=== PATIENT | female | born 1990 | race Caucasian/White ===

== ENCOUNTER 2022-11-05 15:04 | Outpatient (CLI) | payer MEDICARE, SELFPAY ==
[2022-11-05 19:33] LABS: Chlamydia DNA Amplified* NOT DETECTED (No Detected); GC DNA Amplified* NOT DETECTED (No Detected)
[2022-11-08 09:11] LABS: Bacterial Vaginosis by TMA Negative; Candida glabrata by TMA Negative; Candida species by TMA Negative; Trichomonas vaginalis by TMA Negative
== END 2022-11-05 15:05 | disposition home or self-care (01) ==
PROVIDERS: Visit Provider Registered Nurse
DX: N89.8 Other specified noninflammatory disorders of vagina (principal)
CPT/HCPCS: 81513; 87102; 87481; 87491; 87591; 87661

== ENCOUNTER 2022-11-15 11:02 | Outpatient (CLI) | payer MEDICARE, SELFPAY ==
--- NOTE | 2022-11-15 11:00 | CRLHL7_ITS ---
For Patients: As a result of the Century Cures Act, medical imaging exams and procedure reports are released immediately into your electronic medical record. You may view this report before your referring provider. If you have questions, please contact your health care provider. CLINICAL HISTORY: Pelvic pain TECHNIQUE: 2D manrique scale ultrasound. In addition color Doppler and spectral Doppler analysis was performed of the pelvis using a transabdominal and transvaginal approach. FINDINGS: The myometrium has a normal uniform echotexture. The uterus measures 7.8 x 3.9 x 4.6 cm. The endometrial lining appears normal and measures 3 mm in thickness. The right ovary measures 3.3 x 1.3 x 2.1 cm in size and the left ovary measures 3.1 x 1.4 x 2.0 cm. The ovaries demonstrate normal arterial and venous blood flow on color Doppler and spectral Doppler analysis. Mild pelvic free fluid. IMPRESSION: Mild pelvic free fluid, considered the physiologic. Normal ovaries. No torsion. No large ovarian cyst. Dictated by Jg Chavarria MD @ 11/15/2022 12:08:24 PM (Electronically Signed)
== END 2022-11-15 11:03 | disposition home or self-care (01) ==
LOC: US 11:02
PROVIDERS: Visit Provider Registered Nurse
DX: R10.2 Pelvic and perineal pain (principal); R10.32 Left lower quadrant pain
CPT/HCPCS: 76830; 76856; 93976

== ENCOUNTER 2022-12-13 09:48 | Outpatient (CLI) | payer MEDICARE, SELFPAY | END 2022-12-13 09:49 | disposition home or self-care (01) | LOC: NFLDREF 09:49 | PROVIDERS: Visit Provider Registered Nurse | DX: E03.9 Hypothyroidism, unspecified (principal) | CPT/HCPCS: 84443 ==

== ENCOUNTER 2022-12-17 14:52 | Emergency (ER) | payer MEDICARE, SELFPAY ==
[2022-12-17 14:55] VITALS: BP 132/72; PULSE 87; RESP 89; TEMP 36.6; O2SAT 99; BMI 23.4
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
[2022-12-17 16:20] LABS: Basophils Absolute Auto 0.06 K/uL (0.00-0.30); Basophils Percent Auto 0.7 % (0.0-3.0); Eosinophils Absolute Auto 0.03 K/uL (0.00-0.50); Eosinophils Percent Auto 0.4 % (0.0-7.0); Hematocrit 41.2 % (33.0-51.0); Immature Granulocytes Abs Auto 0.01 K/uL (0.00-0.30); Immature Granulocytes Pct Auto 0.1 %; Lymphocytes Absolute Auto 1.87 K/uL (0.90-2.90); Lymphocytes Percent Auto 22.6 % (20-44); Mean Corpuscular HGB Conc 34 gm/dL (32-36); Mean Corpuscular Hemoglobin 30 pg (26-34); Mean Corpuscular Volume 89 fL (80-100); Monocytes Percent Auto 9.2 % (0.0-11.0); Neutrophils Absolute Auto 5.55 K/uL (1.7-7.0); Platelet Count* 272 K/uL (140-440); RDW Coefficient of Variation % 11.8 % (11.5-15.5); Red Blood Count 4.63 m/uL (4.00-5.20); White Blood Count* 8.28 K/uL (4.50-11.00)
[2022-12-17 16:35] LABS: Slide Review Reflex No
[2022-12-17 16:40] LABS: Chloride* 103 mmol/L (96-114); Sodium* 139 mmol/L (135-149)
[2022-12-17 16:42] LABS: Creatinine* 0.5 mg/dL (0.5-1.5); Est. Creatinine Clearance* 148.41; Estimated Glomerular Filt Rate 126 ml/min
[2022-12-17 16:43] LABS: Anion Gap 11 mEq/L (7-15); Blood Urea Nitrogen* 18 mg/dL (5-24); Calcium* 8.8 mg/dL (8.4-10.6); Carbon Dioxide* 25 mmol/L (20-32); Glucose* 100 mg/dL (60-115)
[2022-12-17 17:14] LABS: Thyroid Stimulating Hormone* 0.623 uIU/mL (0.270-4.20)
[2022-12-17 17:22] VITALS: BP 128/88; PULSE 88; RESP 16; O2SAT 96
== END 2022-12-17 17:23 | disposition home or self-care (01) ==
PROVIDERS: Emergency Provider Emergency Medicine Emergency Medical Services
DX: R07.89 Other chest pain (principal); F41.9 Anxiety disorder, unspecified
CPT/HCPCS: 36415; 80048; 84443; 84484; 85025; 93005; 99284

== ENCOUNTER 2023-03-14 14:04 | Outpatient (CLI) | payer MEDICARE, SELFPAY ==
[2023-03-16 13:44] LABS: Bacterial Vaginosis by TMA Negative; Candida glabrata by TMA Negative; Candida species by TMA Negative; Trichomonas vaginalis by TMA Negative
== END 2023-03-14 14:05 | disposition home or self-care (01) ==
LOC: NFLDREF 14:04
PROVIDERS: PCP Registered Nurse; Visit Provider Registered Nurse
DX: N89.8 Other specified noninflammatory disorders of vagina (principal)
CPT/HCPCS: 81513; 87481; 87661

== ENCOUNTER 2023-04-29 13:43 | Outpatient (CLI) | payer MEDICARE, SELFPAY ==
[2023-04-29 22:18] LABS: Chlamydia DNA Amplified* Not Detected (No Detected); GC DNA Amplified* Not Detected (No Detected)
== END 2023-04-29 13:44 | disposition home or self-care (01) ==
PROVIDERS: PCP Registered Nurse; Visit Provider Registered Nurse
DX: L29.2 Pruritus vulvae (principal); N89.8 Other specified noninflammatory disorders of vagina
CPT/HCPCS: 87491; 87591

== ENCOUNTER 2024-04-01 22:39 | Emergency (ER) | payer BC, MEDICARE, SELFPAY ==
[2024-04-01 22:51] VITALS: BP 135/81; PULSE 90; RESP 16; TEMP 36.5; O2SAT 96; BMI 25.0
--- NOTE | 2024-04-01 23:14 | ED.NAVMDI ---
HPI - Nausea/Vomiting/Diarrhea General Chief complaint: Nausea/Vomiting Stated complaint: vomiting Time Seen by Provider: 04/01/24 22:54 History of Present Illness HPI Narrative: This 33-year-old female comes in reporting nausea, vomiting, and diarrhea for the past 8 or 10 hours or so. She states that she feels miserable but arrives with normal vital signs and has not had any fevers. There is no report of blood in the toilet. 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 Related Data Home Medications ?Medication ?Instructions ?Recorded ?Confirmed lactobacillus combination no.9 4 4,000 mmu cells PO QDAY 11/05/22 05/14/23 billion cell capsule (Adult 50 Plus Probiotic) lysine 500 mg tablet (L-Lysine) 500 mg PO QDAY 11/05/22 05/14/23 tretinoin 0.025 % topical cream applic topical 11/05/22 05/14/23 bupropion HCl 300 mg 24 hr tablet, mg PO DAILY 04/01/24 extended release escitalopram oxalate 5 mg tablet 5 mg PO DAILY 04/01/24 04/01/24 estradiol 10 mcg vaginal tablet mcg vaginal 04/01/24 Previous Rx's ?Medication ?Instructions ?Recorded ondansetron 4 mg disintegrating 4 mg PO .q6hr #7 tabs 03/14/23 tablet triamcinolone acetonide 0.1 % 1 applic topical QDAY #30 grams 05/06/23 topical ointment drospirenone 3 mg-ethinyl 1 tab PO QDAY #84 tabs 05/14/23 estradiol 0.02 mg tablet (PAMELA (28)) Allergies Allergy/AdvReac Type Severity Reaction Status Date / Time doxycycline Allergy Severe throat Verified 05/14/23 08:28 swelling lamotrigine (From Lamictal) Allergy Severe Verified 05/14/23 08:28 Review of Systems Status of ROS: Reports: 10 or more systems reviewed and unremarkable except as noted in History and below Narrative: Constitutional: No fevers, no weight gain or loss. Eyes: No discharge. No vision changes. HENT: No congestion, no sore throat, no ear pain. Cardiovascular: No chest pain, no palpitations. Respiratory: No shortness of breath, no wheezes, no cough. Gastrointestinal: Nausea, vomiting, and diarrhea. Genitourinary: No dysuria, no hematuria. Musculoskeletal: Normal range of motion. Skin: No rashes, no pruritis. Neurological: No dizziness, weakness, sensory change, speech change. Endo/Heme/Allergies: No bruising or bleeding. No polydipsia. Pysch: no suicidality, no anxiety, no insomnia. All other systems reviewed and are negative. 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) PTSD (post-traumatic stress disorder) ?F43.10 - Post-traumatic stress disorder, unspecified (ICD-10) Melanoma (2019) ?C43.9 - Malignant melanoma of skin, unspecified (ICD-10) Anxiety ?F41.9 - Anxiety disorder, unspecified (ICD-10) 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) Chlamydia ?A74.9 - Chlamydial infection, unspecified (ICD-10) Surgical History H/O melanoma excision (2019) ?Z98.890 - Other specified postprocedural states (ICD-10) ?Z85.820 - Personal history of malignant melanoma of skin (ICD-10) Family History Paternal Grandfather Stroke, Onset Age: 80 Maternal Grandmother Ovarian cancer Father Atrial fibrillation Depression OCD (obsessive compulsive disorder) Anxiety disorder Maternal Grandfather FH: testicular cancer, Onset Age: 60 Mother Anxiety disorder Social History Narrative: , [id number] mom, student of [employer] online, 1 3-year-old child, moved from [facility] Does not drink alcohol since 2017 Never smoker Uses THC gummies What is your current living situation?: I presently have a place to live Problems where you live: no known problems In the past 12 months, utilities in danger of being shut off: no In past 12 months, lack of transportation kept you from medical appts, meetings, work, or getting things needed for daily living: no In the past 12 mos, have been you worried that your food would run out before you had money to buy more?: never true In the past 12 mos, the food you bought just didn't last and you didn't have money to buy more?: never true Smoking Status: Never smoker Non-prescribed substance use: denies use How often does anyone, including family, friends and others, physically hurt you: never How often does anyone, including family, friends and others, insult or talk down to you: never How often does anyone, including family, friends and others, threaten you with harm: never How often does anyone, including family, friends and others, scream or curse at you: never Exam Narrative: Exam Narrative: Constitutional: Well-developed, well-nourished. HEENT: Normocephalic, atraumatic. Neck: Normal range of motion. Nontender. Supple. Heart: Intact distal pulses. Lungs: No chest discomfort. No wheezes, rhonchi, or rales. Abdomen: Nontender. Back: Normal range of motion. Extremities: Normal range of motion. No injury. Skin: Intact. No rash. Warm. No erythema or pallor. Neurologic: No altered sensation. No weakness. Alert and oriented. Psychiatric: No suicidality. No anxiety or depression. No insomnia. Nursing notes and vitals signs are reviewed. Const: Vital Signs, click to edit/add: Vital Signs - 24 hr 04/01/24 22:51 Temperature 97.7 F Pulse Rate [Pulse Oximeter] 90 Respiratory Rate 16 Blood Pressure [Ri ght Upper Arm] 135/81 Pulse Oximetry 96 Oxygen Delivery Me thod Room Air Course Vital Signs Vital signs: Initial Vital Signs Temperature 97.7 F 04/01/24 22:51 Temperature Source Temporal Artery Scan 04/01/24 22:51 Pulse Rate 90 04/01/24 22:51 Respiratory Rate 16 04/01/24 22:51 Blood Pressure 135/81 04/01/24 22:51 Blood Pressure Mean 99 04/01/24 22:51 Blood Pressure Position Sitting 04/01/24 22:51 Pulse Oximetry 96 04/01/24 22:51 Oxygen Delivery Method Room Air 04/01/24 22:51 Vital Signs Temperature 97.7 F 04/01/24 22:51 Pulse Rate 90 04/01/24 22:51 Respiratory Rate 16 04/01/24 22:51 Blood Pressure 135/81 04/01/24 22:51 Pulse Oximetry 96 04/01/24 22:51 Oxygen Delivery Method Room Air 04/01/24 22:51 Temperature 97.7 F 04/01/24 22:51 Pulse Rate 90 04/01/24 22:51 Respiratory Rate 16 04/01/24 22:51 Blood Pressure 135/81 04/01/24 22:51 Pulse Oximetry 96 04/01/24 22:51 Oxygen Delivery Method Room Air 04/01/24 22:51 Medications Administered Medications: Generic Name Dose Route Start Last Admin Trade Name Freq PRN Reason Stop Dose Admin Sodium Chloride 1,000 mls @ 1,000 mls/hr 04/01/24 23:15 04/02/24 00:01 0.9 % Sodium Chloride 1000 Ml IV 04/02/24 00:14 Infused .Q1H STEVEN Infusion Ketorolac Tromethamine 15 mg 04/01/24 23:13 04/01/24 23:32 Ketorolac 30 Mg/Ml Inj IVP 04/01/24 23:14 15 mg ONCE ONE Administration Ondansetron HCl 4 mg 04/01/24 23:13 04/01/24 23:32 Ondansetron 2 Mg/Ml Inj IVP 04/01/24 23:14 4 mg ONCE ONE Administration MDM - Nausea/Vomiting/Diarrhea MDM Narrative Medical decision making narrative: This patient comes in with nausea, vomiting, and diarrhea and generalized malaise. Her symptoms are typical of a viral gastroenteritis that we have been seeing. She does arrive with normal vital signs. An IV was established where she did receive a L of normal saline, 15 mg of Toradol, and 4 mg of Zofran. This helped her feel significantly better. She received a [facility] prescription for Zofran. Lab Data Labs: Lab Results 04/01/24 04/01/24 Range/Units 23:04 23:35 WBC 20.01 H (4.50-11.00) K/uL RBC 4.77 (4.00-5.20) m/uL Hgb 14.1 (12.0-16.0) gm/dL Hct 41.4 (33.0-51.0) % MCV 87 (80-100) fL MCH 30 (26-34) pg MCHC 34 (32-36) gm/dL RDW Coeff of Jered 11.8 (11.5-15.5) % Plt Count 300 (140-440) K/uL Neut % (Auto) 95.0 H (42.0-72.0) % Lymph % (Auto) 1.1 L (20-44) % Rolette % (Auto) 3.6 (0.0-11.0) % Eos % (Auto) 0.0 (0.0-7.0) % Baso % (Auto) 0.1 (0.0-3.0) % Neut # (Auto) 19.00 H (1.7-7.0) K/uL Lymph # (Auto) 0.20 L (0.90-2.90) K/uL Rolette # (Auto) 0.70 (0.00-0.90) K/UL Eos # (Auto) 0.00 (0.00-0.50) K/uL Baso # (Auto) 0.00 (0.00-0.30) K/uL Abs Immat Gran (auto) 0.00 (0.00-0.30) K/uL Imm/Tot Granulo (auto) 0.2 % SARS-CoV-2 (PCR) Negative SARS-CoV-2 (Negative) Influenza Type A (PCR) Negative PCR FLU A (Negative) Influenza Type B (PCR) Negative PCR FLU B (Negative) RSV (PCR) Negative PCR RSV (Negative) Discharge Plan Discharge Clinical Impression: Gastroenteritis Patient Disposition: Home, Self-Care Condition: Improved Additional Instructions: Use medication as needed and directed. Take frequent sips of fluid and increase diet otherwise as tolerated. Prescriptions: No Action lysine [L-Lysine] 500 mg tablet 500 mg PO QDAY Adult 50 Plus Probiotic 4 billion cell capsule 4,000 mmu cells PO QDAY tretinoin 0.025 % cream topical ondansetron 4 mg tablet,disintegrating 4 mg PO .q6hr Qty: 7 0RF triamcinolone acetonide 0.1 % ointment 1 applic topical QDAY Qty: 30 1RF drospirenone-ethinyl estradiol [PAMELA (28)] 3-0.02 mg tablet 1 tab PO QDAY Qty: 84 4RF bupropion HCl 300 mg tablet extended release 24 hr PO DAILY escitalopram oxalate 5 mg tablet 5 mg PO DAILY estradiol 10 mcg tablet vaginal Follow Up/Referrals: Provider,Not a Local [Primary Care Provider] - Stand Alone Forms: [facility] Info Instructions
[2024-04-01] MEDS: KETOROLAC 30 MG/ML inj 15 MG IVP (23:32)
[2024-04-01] MEDS: 0.9 % SODIUM CHLORIDE 1000 ml 1,000 ML IV (23:32)
[2024-04-01] MEDS: ONDANSETRON 2 MG/ML inj 4 MG IVP (23:32)
[2024-04-01 23:39] LABS: Basophils Percent Auto 0.1 % (0.0-3.0); Hematocrit 41.4 % (33.0-51.0); Hemoglobin* 14.1 gm/dL (12.0-16.0); Immature Granulocytes Pct Auto 0.2 %; Lymphocytes Percent Auto 1.1 % (20-44); Mean Corpuscular HGB Conc 34 gm/dL (32-36); Mean Corpuscular Hemoglobin 30 pg (26-34); Mean Corpuscular Volume 87 fL (80-100); Monocytes Percent Auto 3.6 % (0.0-11.0); Platelet Count* 300 K/uL (140-440); RDW Coefficient of Variation % 11.8 % (11.5-15.5); Red Blood Count 4.77 m/uL (4.00-5.20); White Blood Count* 20.01 K/uL (4.50-11.00)
[2024-04-01 23:42] LABS: Slide Review Reflex No
[2024-04-01 23:43] LABS: PCR FLU A Negative PCR FLU A (Negative); PCR FLU B Negative PCR FLU B (Negative); PCR RSV Negative PCR RSV (Negative); SARS PCR* Negative SARS-CoV-2 (Negative)
[2024-04-01 23:54] LABS: Chloride* 104 mmol/L (96-114); Potassium* 3.6 mmol/L (3.6-5.1); Sodium* 138 mmol/L (135-149)
[2024-04-01 23:57] LABS: Anion Gap 10 mEq/L (7-15); Blood Urea Nitrogen* 18 mg/dL (5-24); Calcium* 8.6 mg/dL (8.4-10.6); Carbon Dioxide* 24 mmol/L (20-32); Creatinine* 0.7 mg/dL (0.5-1.5); Est. Creatinine Clearance* 105.01; Estimated Glomerular Filt Rate 116 ml/min; Glucose* 167 mg/dL (60-115)
--- OUTSIDE RECORDS SUMMARY | 2024-04-01 23:58 | XMS_ITS | Clinical Summary ---
Author Organization [facility] Address [address] [address] Care Team Providers Care Forensic Chemist Name Role Phone Austin Morocho MD Primary Care Provider [phone] Source Comments You are receiving this document as you are listed as the primary care provider,follow-up provider, or the patient has been referred to you for consultation.This is in compliance with the Medicare and[facility] E[facility] Incentive Program,which states Providers who transition their patient to another setting of careor provider of care or refers their patient to another provider of care shouldprovide summary care record for each transition of care or referral. [facility] Allergies No known active allergies Medications Medication Sig Dispensed Refills Start Date End Date Status fluoxetine (AKA PROZAC) 40 MG capsule Take 1 capsule by mouth daily (every 24 hours). LW Addl Instr:Indicated for: Depression 30 3 06/19/2006 Active amitriptyline (AKA ELAVIL) 50 MG tablet Take 1 tablet by mouth nightly. 90 3 06/19/2006 Active unknown medication Indications: PN: 06/19/2006 Active lamoTRIgine (AKA LAMICTAL) 25 MG tablet Take 1 tablet by mouth. LW Addl Instr:Indicated for: Seizure Disorder 3 06/19/2006 Active Active Problems Problem Noted Date Diagnosed Date General symptom 07/15/2006 Overview (10/30/2016): Chronic Pain Syndrome Depressive disorder 07/15/2006 Overview (10/30/2016): Depression NOS Social History Tobacco Use Types Packs/Day Years Used Date Smoking Tobacco: Never Sex and Gender Information Value Date Recorded Sex Assigned at Not on file Gender Identity Not on file Sexual Orientation Not on file Last Filed Vital Signs Vital Sign Reading Time Taken Comments Blood Pressure 110/68 06/19/2006 9:29 AM CDT Pulse 78 06/19/2006 9:29 AM CDT Temperature 37.3 C (99.1 F) 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 Respiratory Rate - - Oxygen Saturation - - Inhaled Oxygen Concentration - - Weight 64.4 kg (142 lb) 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 Height 167.6 cm (5' 6) 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 Body Mass Index 22.92 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 Plan of Treatment Health Maintenance Due Date Last Done Comments Cervical Cancer Screening Due 1988 Hep C Screening (Preventive Services) 1988 HIV Screening (Preventive Services) 2004 Adult Preventive Visit 2006 HepB (1) 10/08/2007 HepA (2 of 2 - 2-dose series) 02/24/2008 08/25/2007 DTaP/Tdap/Td (5 - Tdap) 04/10/2023 04/10/19 14, 08/03/1999, 10/30/1993, Additional history exists COVID-19 Vaccine ( season) 2023 02/20/2021, 07/04/2020, 06/13/2020 Influenza (#1) 2023 05/31/2020, 12/08, 05/10/2013, Additional history exists Zoster/Shingles (1 of 2) 2038 HPV Vaccine Completed 05/10/2013, 10/08, 08/25/2007 MCV4 Aged Out 05/17/2015 No longer eligi ble based on patient's age to complete this topic Hib Aged Out No longer eligi ble based on patient's age to complete this topic IPV (Polio) Aged Out No longer eligi ble based on patient's age to complete this topic Pneumococcal Aged Out No longer eligi ble based on patient's age to complete this topic Care Teams Forensic Chemist Relationship Specialty Start Date End Date Austin Morocho MD [address] [place] [address] PCP - General 06/12/10
--- OUTSIDE RECORDS SUMMARY | 2024-04-01 23:58 | XMS_ITS | CCD ---
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
--- OUTSIDE RECORDS SUMMARY | 2024-04-01 23:58 | XMS_ITS | CCD ---
Author Name Interface, [id number] lity Address [address] [facility] [address] [address] Organization [facility] Address [address] [facility] [address] [address] Care Team Providers Care Acrobatic Rigger Name Role Phone Max Gamez Unavailable Unavailab le Allergies and Adverse Reactions Medication/Group Name Reaction Severity Date No known allergies Reason for Visit [facility] - RECONSULT DISCUSS [facility] BX - RECONSULT DISCUSS SLN BX Encounters Date Name 10/30/2018 [employer] - [place] - SELF PAY NO INSURANCE [...]
== END 2024-04-02 00:26 | disposition home or self-care (01) ==
PROVIDERS: Emergency Provider Emergency Medicine Emergency Medical Services
DX: K52.9 Noninfective gastroenteritis and colitis, unspecified (principal)
CPT/HCPCS: 36415; 80048; 85025; 87631; 96374; 96375; 99284; J1885; J2405; J7030

== ENCOUNTER 2024-12-08 13:27 | Emergency (ER) | payer BC, MEDICARE, SELFPAY ==
--- OUTSIDE RECORDS SUMMARY | 2024-12-08 13:30 | XMS_ITS | Clinical Summary ---
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 [facility] Allergies No known active allergies Medications fluoxetine (AKA PROZAC) 40 MG capsule Take 1 capsule by mouth daily (every 24 hours). LW Addl Instr:Indicated for: Depression 30 3 7 Active amitriptyline (AKA ELAVIL) 50 MG tablet Take 1 tablet by mouth nightly. 90 3 7 Active unknown medication Indications: PN: 7 Active lamoTRIgine (AKA LAMICTAL) 25 MG tablet Take 1 tablet by mouth. LW Addl Instr:Indicated for: Seizure Disorder 3 7 Active Active Problems Problem Noted Date Diagnosed Date General symptom 07/15/2006 Overview (10/30/2016): Chronic Pain Syndrome Depressive disorder 07/15/2006 Overview (10/30/2016): Depression NOS Social History Tobacco Use Types Packs/Day Years Used Date Smoking Tobacco: Never Comments Unknown Sex and Gender Information Value Date Recorded Sex Assigned at Not on file Legal Sex Female 10:56 PM CDT Gender Identity Not on file Sexual Orientation Not on file Last Filed Vital Signs Vital Sign Reading Time Taken Comments Blood Pressure 110/68 06/19/2006 9:29 AM CDT Pulse 78 06/19/2006 9:29 AM CDT Temperature 37.3 C (99.1 F) 02/26/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 Respiratory Rate - - Oxygen Saturation - - Inhaled Oxygen Concentration - - Weight 64.4 kg (142 lb) 02/26/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 Height 167.6 cm (5' 6) 02/26/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 Body Mass Index 22.92 02/26/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 Plan of Treatment Health Maintenance Due Date Last Done Comments Cervical Cancer Screening Due 1988 Hep C Screening (Preventive Services) 1988 HIV Screening (Preventive Services) 2004 Adult Preventive Visit 2006 HepB Vaccine (1) 10/08/2007 HepA Vaccine (2 of 2 - 2-dose series) 02/24/2008 08/25/2007 DTaP/Tdap/Td Vaccine (5 - Tdap) 04/10/2023 04/10/2013, 08/03/1999, 10/30/1993, Additional history exists COVID-19 Vaccine ( - season) 2024 02/20/2021, 07/04/2020, 06/13/2020 Influenza Vaccine (#1) 2024 , 12/24/2018, 05/10/2013, Additional history exists Zoster/Shingles Vaccine (1 of 2) 2038 HPV Vaccine Completed 05/10/2013, 10/08, 08/25/2007 MCV4 Vaccine Aged Out 05/17/2015 No longer eligi ble based on patient's age to complete this topic Hib Vaccine Aged Out No longer eligi ble based on patient's age to complete this topic IPV (Polio) Vaccine Aged Out No longe r eligible based on patient's age to complete this topic Meningococcal B Vaccine Aged Out No l onger eligible based on patient's age to complete this topic Pneumococcal Vaccine Aged Out No long er eligible based on patient's age to complete this topic Insurance [facility] Care Teams Sheet Metal Production Worker Relationship Specialty Start Date End Date Austin Morocho MD [address] [place] [address] PCP - General 06/12/10
--- OUTSIDE RECORDS SUMMARY | 2024-12-08 13:30 | XMS_ITS | Clinical Summary ---
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 Honey Austin Anthony Syndrome High 02/20/2016 Medications norethindrone (Micronor) 0.35 mg tablet Take 1 tablet by mouth in the morning. 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
--- OUTSIDE RECORDS SUMMARY | 2024-12-08 13:30 | XMS_ITS | Clinical Summary ---
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 unless problems. -Reviewed Bloodwork to be done at first OB: CBC, Hepatitis B, HIV, RPR, Gonorrhea, Chlamydia, UA, URINE CULTURE, Drug screen, TSH, Blood type. RPR testing also done at 28 weeks and delivery. -RPR at 28 weeks and after delivery. Tdap shot at end of - Need for Rhogam shots based on blood typing done with labwork today. Rhogam shots at 28 weeks and 12 weeks later if still for Rh - mothers. Another Rhogam within 72 hours of delivery if baby Rh positive. Discussed resources available, nurses, OB MD, lacatation merchandising consultant and Babystop class. Advised to check on breastpumps with insurance. Informed patient how to contact the triage nurse or the labor and delivery floor if experiencing any symptoms listed below. Warning signs: vaginal bleeding, fluid leaking from your vagina, severe abdominal pain, nausea/vomiting more than 4-5 times a day or if not able to keep anything down, fever more than 100.4, problems with urination and headache that doesn't go away with tylenol. Questions the patient has: two years ago had a small hernia above belly button. Causing pain after . Testing showed that it is not bowel. Started irritating her again. A/P: OB Education. OB labs and US are not needed. She is not in need of a prescription for vitamins and she has her next OB visit scheduled with Dr. Bishop on 10/20/24 . 30 minutes spent with patient and greater than 50% was spent on counseling. Gregoria Dewitt, RN .................... 09/22/2024 9:43 AM Last Filed Vital Signs Vital Sign Reading Time Taken Comments Blood Pressure 112/60 11/23/2024 8:20 AM CDT Pulse 84 11/23/2024 8:20 AM CDT Temperature 37 C (98.6 F) 05/24/2024 1:38 PM CDT Respiratory Rate 16 02/20/2016 4:08 PM [facility] Oxygen Saturation 98% 11/23/2024 8:20 AM CDT Inhaled Oxygen Concentration - - Weight 81.4 kg (179 lb 6.4 oz) 11/23/2024 8:20 A M CDT Height 167.6 cm (5' 6) 10/20/2024 8:33 AM CDT Body Mass Index 28.96 10/20/2024 8:33 AM CDT Plan of Treatment Upcoming Encounters Date Type Department Care Team (Late st Contact Info) Description 12/22/2024 12:45 PM CDT Appointment [facility] [address] [facility] [address] [place] [address] 12/22/2024 2:00 PM CDT Appointment [facility] [address] [facility] [address] [address] 01/05/2025 9:10 AM CDT OB Encounter [address] [place] [phone] Charito Bishop MD [address] [place] [address] [place] [address] Health Maintenance Due Date Last Done Comments Pneumococcal series for age 6-49 (1 of 2 - PCV) 10/08/2007 Tetanus booster 04/10/2023 04/10/2013, 05/08, 08/03/1999, Additional history exists COVID-19 vaccine series ( season) 2024 02/28/2022, 02/20/2021, 07/04/2020, Additional history exists Influenza Vaccine (#1) 2024 , 05/31/2020, 12/24/2018, Additional history exists RSV vaccine for adults or (1 - Risk 1-dose series) 03/20/2025 Pap test for age 21-65 10/08/2025 3 (Verified in Care Everywhere or Patient Record), 08/11/2017 BMI (ht and wt on same day) for age 18+ 10/20/2025 10/20/2024, 09/16/2024, 10/12/2018, Additional history exists Depression screening for age 12+ 11/23/2025 11/23/2024, 09/22/2024, 09/16/2024, Additional history exists Hepatitis B series for 19+ Completed 07/01, 08/14/2000, 08/03/1999 HPV series for age 9-45 Completed 05/11/19 14, 10/26/2009, 08/25/2007 HIV for age 15-65 Completed 10/20/2024, 08/11/2017 Hepatitis C screening for ag e 18-79 Completed 10/20/2024, 08/11/2017 Procedures Procedure Name Priority Date/Time Associated Diagnosis Comments TSH WITH REFLEX Routine 11/23/2024 9:40 AM CDT EXTENDED HOLTER Routine 10/26/2024 Palpitations ANTI HIV 1/2 Routine 10/20/2024 10:40 AM CDT Advanced maternal age in multigravida, first trimester (HC) ANTI HCV Routine 10/20/2024 10:40 AM CDT Advanced maternal age in multigravida, first trimester (HC) CBC W PLT NO DIFF Routine 10/20/2024 10: 40 AM CDT Advanced maternal age in multigravida, first trimester (HC) HBSAG (HBS) Routine 10/20/2024 10:40 AM CDT Advanced maternal age in multigravida, first trimester (HC) RUBELLA IMMUNE STATUS Routine 10/20/2024 10:40 AM CDT Advanced maternal age in multigravida, first trimester (HC) VITAMIN D 25 (DEFICIENCY) Routine 10/20/2024 10:40 AM CDT Advanced maternal age in multigravida, first trimester (HC) VARICELLA-ZOSTER V AB, IGG Routine 10/20/2024 10:40 AM CDT Advanced maternal age in multigravida, first trimester (HC) TYPE & SCREEN Routine 10/20/2024 10:34 AM CDT Advanced maternal age in multigravida, first trimester (HC) GC CHLAMYDIA TRACH PROBE Routine 10/20/2024 10:34 AM CDT Advanced maternal age in multigravida, first trimester (HC) TREPONEMA PALLIDUM Routine 10/20/2024 10 :34 AM CDT Advanced maternal age in multigravida, first trimester (HC) URINE CULTURE STAT 10/20/2024 10:34 AM CDT Advanced maternal age in multigravida, first trimester (HC) DNA SCREEN SEND OUT Routine 10/20/2024 12:00 AM CDT Advanced maternal age in multigravida, first trimester (HC) US OB ANY TRI TV INNA 09/20/2024 8:52 AM CDT Encounter for supervision of low-risk in first trimester (HC) URINE Routine 09/16/2024 10:16 AM CDT Missed period 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 THIN PREP PAP SCREEN IMAGED Routine 08/11/2017 2:20 PM CDT Encounter for gynecological examination without abnormal finding from Last 3 Months or Most Recently Relevant to Health Maintenance Results * TSH WITH REFLEX (11/23/2024 9:40 AM CDT) TSH W/REFLEX TO FT4 0.92 mIU/L [facility] Comment: Reference Range > or = 20 Years 0.40-4.50 Ranges First trimester 0.26-2.66 Second trimester 0.55-2.73 Third trimester 0.43-2.91 11/23/2024 9:40 AM CDT 11/23/2024 12:38 PM CDT Charito Bishop MD CHEMISTRY Final Result [facility] [address] [place] [address], [employer] [address] [place] [address] * EXTENDED HOLTER (10/26/2024) Charito Bishop MD CARDIAC SERVICE S ORD Final Result * VARICELLA-ZOSTER V AB, IGG (10/20/2024 10:40 AM CDT) VARICELLA ZOSTER VIRUS ANTIBODY (IGG) 5.04 S/CO [facility] Comment: Signal to Cut-off S/CO Interpretation --------- <1.00 Negative - Antibody not detected > or = 1.00 Positive - Antibody detected A positive result indicates that the patient has antibody to VZV but does not differentiate between an active or past infection. The clinical diagnosis must be interpreted in conjunction with the clinical signs and symptoms of the patient. This assay reliably measures immunity due to previous infection but may not be sensitive enough to detect antibodies induced by vaccination. Thus, a negative result in a vaccinated individual does not necessarily indicate susceptibility to VZV infection. A more sensitive test for vaccination-induced immunity is Varicella Zoster Virus Antibody Immunity Screen, ACIF. Blood BLOOD SPECIMEN / Unknown 10/20/2024 10:40 AM CDT 10/20/2024 10:41 AM CDT Charito Bishop MD LABORATORY Final Result [facility] [address] [place] [address], [employer] [address] * VITAMIN D 25 (DEFICIENCY) (10/20/2024 10:40 AM CDT) [facility] VITAMIN D,25-OH,TOTAL,IA 37 30 - 100 ng/mL [employer] Comment: Vitamin D Status 25-OH Vitamin D: Deficiency: <20 ng/mL Insufficiency: 20 - 29 ng/mL Optimal: > or = 30 ng/mL For 25-OH Vitamin D testing on patients on D2-supplementation and patients for whom quantitation of D2 and D3 fractions is required, the [facility] 25-OH VIT D, (D2,D3), LC/MS/MS is recommended: order code 25794 (patients >2yrs). See Note 1 Note 1 For additional information, please refer to http://education.[employer].Authorly/faq/DHY362 (This link is being provided for informational/ educational purposes only.) Blood BLOOD SPECIMEN / Unknown 10/20/2024 10:40 AM CDT 10/20/2024 10:41 AM CDT Charito Bishop MD SEND OUTS Final Result Performing Organization Address [facility] de Phone Number [facility] [address] [place] [address], [facility] [address] [place] [address] * RUBELLA IMMUNE STATUS (10/20/2024 10:40 AM CDT) RUBELLA AB (IGG), IMMUNE STATUS 1.28 Index [facility] Comment: Index Interpretation ----- <0.90 Not consistent with immunity 0.90-0.99 Equivocal > or = 1.00 Consistent with immunity The presence of rubella IgG antibody suggests immunization or past or current infection with rubella virus. Blood BLOOD SPECIMEN / Unknown 10/20/2024 10:40 AM CDT 10/20/2024 10:41 AM CDT Charito Bishop MD SEND OUTS Final Result Performing Organization Address [facility] de Phone Number [facility] [address] [place] [phone], [facility] [address] [place] [phone] * HBSAG (HBS) (10/20/2024 10:40 AM CDT) HEPATITIS B SURFACE ANTIGEN NON-REACTI VE NON-REACTI VE [facility] Comment: For additional information, please refer to http://education.[employer].Authorly/faq/PEY144 (This link is being provided for informational/ educational purposes only.) Blood BLOOD SPECIMEN / Unknown 10/20/2024 10:40 AM CDT 10/20/2024 10:41 AM CDT Charito Bishop MD SEND OUTS Final Result [facility] [address] [place] [address], [facility] [address] [place] [address] * ANTI HCV (10/20/2024 10:40 AM CDT) Pathologist [facility] HEPATITIS C ANTIBODY NON-REACTI VE NON-REACT LEW [facility] Comment: HCV antibody was non-reactive. There is no laboratory evidence of HCV infection. In most cases, no further action is required. However, if recent HCV exposure is suspected, a test for HCV RNA (test code 29544) is suggested. For additional information please refer to http://education.[employer]/faq/GBY12r0 (This link is being provided for informational/ educational purposes only.) Blood BLOOD SPECIMEN / Unknown 10/20/2024 10:40 AM CDT 10/20/2024 10:41 AM CDT Charito Bishop MD SEND OUTS Final Result [employer] [address] [address], [employer] [address] [place] [phone] * (ABNORMAL) CBC W PLT NO DIFF (10/20/2024 10:40 AM CDT) Pathologist [facility] WHITE BLOOD CELL COUNT 13.9(H) 3.8 - 10.8 Thousand/u L [facility] RED BLOOD CELL COUNT 4.99 3.80 - 5.10 Million/uL [facility] HEMOGLOBIN 14.5 11.7 - 15.5 g/dL [facility] HEMATOCRIT 44.4 35.0 - 45.0 % [facility] MCV 89.0 80.0 - 100.0 fL [facility] MCH 29.1 27.0 - 33.0 pg [facility] MCHC 32.7 32.0 - 36.0 g/dL [facility] Comment: For adults, a slight decrease in the calculated MCHC value (in the range of 30 to 32 g/dL) is most likely not clinically significant; however, it should be interpreted with caution in correlation with other red cell parameters and the patient's clinical condition. RDW 13.0 11.0 - 15.0 % [facility] PLATELET COUNT 345 140 - 400 Thousand/u L [facility] MPV 10.5 7.5 - 12.5 fL [facility] Blood BLOOD SPECIMEN / Unknown 10/20/2024 10:40 AM CDT 10/20/2024 10:41 AM CDT Charito Bishop MD HEMATOLOGY Final Result Performing Organization Address [facility]/ZIP Co de Phone Number [facility] [address] [place] [address], [place] [phone] [employer] [address] [place] [address] * ANTI HIV 1/2 (10/20/2024 10:40 AM CDT) [facility] HIV FINAL INTERPRETATOIN [employer] Comment: HIV Negative HIV-1 antigen and HIV-1/HIV-2 antibodies were not detected. There is no laboratory evidence of HIV infection. HIV AG/AB, 4TH GEN NON-REACT LEW NON-REACT LEW [facility] Blood BLOOD SPECIMEN / Unknown 10/20/2024 10:40 AM CDT 10/20/2024 10:41 AM CDT Charito Bishop MD SEND OUTS Final Result Performing Organization Address [facility]/ZIP Co de Phone Number [facility] [address] [place] [address], [place] [phone] [employer] [address] [place] [address] * TREPONEMA PALLIDUM (10/20/2024 10:34 AM CDT) TREPONEMA PALLIDUM Non-Reacti ve Non-Reacti ve 10/21/2024 12:04 AM CDT [facility] Blood BLOOD SPECIMEN / Unknown [facility] / Unknown 10/20/2024 10:34 AM CDT 10/20/2024 10:35 AM CDT Charito Bishop MD SEND OUTS Final Result [facility] [address] [place] [address], [place] * GC CHLAMYDIA TRACH PROBE [[id number]] - vaginal (10/20/2024 10:34 AM CDT) CHLAMYDIA PROBE Negative 1:30 PM CDT [facility] N GONORRHOEAE PROBE Negative 10/21/2024 1:30 PM CDT [facility] Other VAGINAL SWAB / Unknown Non-Blood / Unknown 10/20/2024 10:34 AM CDT 10/20/2024 10:35 AM CDT Charito Bishop MD MICROBIOLOGY Final Result [facility] [address] [place] [address], [place] * TYPE & SCREEN (10/20/2024 10:34 AM CDT) ABORH O Rh Negative 10/20/2024 1:12 PM CDT [facility] BLOOD BANK ANTIBODY SCREEN Negative Negative 10/20/2024 1:12 PM CDT [facility] BLOOD BANK SPECIMEN EXPIRATION DATE/TIME 10/23/24 23:59 10/20/2024 1:12 PM CDT [facility] BLOOD BANK Blood BLOOD SPECIMEN / Unknown [facility] / Unknown 10/20/2024 10:34 AM CDT 10/20/2024 10:35 AM CDT Charito Bishop MD BLOOD BANK Final Result [facility] BLOOD BANK [address] [place] [address] * URINE CULTURE (10/20/2024 10:34 AM CDT) CULTURE <10,000 CFU/mL multiple organisms 10/22/2024 3:04 PM CDT [facility] Urine URINE SPECIMEN / Unknown Non-Blood / Unknown 10/20/2024 10:34 AM CDT 10/20/2024 10:35 AM CDT Charito Bishop MD MICROBIOLOGY Final Result [facility] [address] [place] [address], [place] * DNA SCREEN SEND OUT (10/20/2024 12:00 AM CDT) Other BLOOD SPECIMEN / Unknown Charito Bishop MD SEND OUTS Final Result * US OB ANY TRI TV (09/20/2024 8:52 AM CDT) Anatomical Region Laterality Modality , 2or 3 TRIMESTER, 1ST TRIMESTER Ultrasound 09/20/2024 9:03 AM CDT Impressions 09/20/2024 9:03 AM CDT Single intrauterine gestation with an estimated gestational age of 6 weeks 1 day based on a crown-rump length of 4 millimeters. No complication seen. Dictated by Maria R Arreola MD @ 09/20/2024 9:03:07 AM (Electronically Signed) Narrative 09/20/2024 9:03 AM CDT For Patients: As a result of the Cures Act, medical imaging exams and procedure reports are released immediately into your electronic medical record. You may view this report before your referring provider. If you have questions, please contact your health care provider. INDICATION: Encounter for supervision of low risk in the 1st trimester COMPARISON: 10/12/2018 TECHNIQUE: Frausto-scale and color Doppler of the gravid uterus us from a transvaginal approach. Frausto-scale and color Doppler of the ovaries and adnexa from a transvaginal approach. FINDINGS: Last menstrual period: 07/29/2024 Estimated gestational age: 7 weeks 4 days FIRST TRIMESTER There is an intrauterine gestational sac that measures 30 x 26 x 7 mm for a mean sac diameter of 21 mm. This corresponds to a gestational age of 7 weeks 3 days. There is a normal yolk sac. An embryo is present with a crown-rump length of 4 mm, which corresponds to a gestational age of 6 weeks 1 day. Embryonic cardiac activity is present, at a rate of 115 bpm. No perigestational hemorrhage. MATERNAL Left ovary measures 1.4 x 2.6 x 1.8 cm. Left corpus luteum cyst the right ovary measures 1.0 x 3.2 x 0.8 cm. No pelvic free fluid. Procedure Note Maria R Arreola MD - 09/20/2024 For Patients: As a result of the Cures Act, medical imagingexams and procedure reports are released immediately into your electronicmedical record. You may view this report before your referring provider.If you have questions, please contact your health care provider. INDICATION: Encounter for supervision of low risk in the 1st trimester COMPARISON: 10/12/2018 TECHNIQUE: Frausto-scale and color Doppler of the gravid uterus us from a transvaginalapproach. Frausto-scale and color Doppler of the ovaries and adnexa from a transvaginalapproach. FINDINGS: Last menstrual period: 07/29/2024 Estimated gestational age: 7 weeks 4 days FIRST TRIMESTER There is an intrauterine gestational sac that measures 30 x 26 x 7 mm fora mean sac diameter of 21 mm. This corresponds to a gestational age of 7weeks 3 days. There is a normal yolk sac. An embryo is present with a crown-rump length of 4 mm, which correspondsto a gestational age of 6 weeks 1 day. Embryonic cardiac activity ispresent, at a rate of 115 bpm. No perigestational hemorrhage. MATERNAL Left ovary measures 1.4 x 2.6 x 1.8 cm. Left corpus luteum cyst the rightovary measures 1.0 x 3.2 x 0.8 cm. No pelvic free fluid. IMPRESSION: Single intrauterine gestation with an estimated gestational age of 6 weeks1 day based on a crown-rump length of 4 millimeters. No complicationseen. Dictated by Maria R Arreola MD @ 09/20/2024 9:03:07 AM (Electronically Signed) Charito Bishop MD US Final Result * (ABNORMAL) URINE (09/16/2024 10:16 AM CDT) ,URIN E Positive(P ositive) Negative 09/16/2024 10:23 AM CDT [facility] Comment:Is Rh typing necessa ry? 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 ThinPrep Vial Screening, Cervical 08/20/2017 10:29 AM CDT [facility]AL [facility] INTERPRETATION/ RESULT NEGATIVE FOR INTRAEPITHELIAL LESION OR MALIGNANCY (NIL) (none) 08/20/2017 10:29 AM T [facility] ENTROH LABOR[facility]ORY at 1029 CDT SPECIMEN ADEQUACY Satisfactory for evaluation Endocervical component present 08/20/2017 10:29 AM CDT [facility] HPV REQUEST HPV if ASCUS 08/20/2017 10:29 AM CDT [facility] Date of LMP 07/31/2017 08/20/2017 10:29 AM CDT [facility] Last Pap Date 2009 or 2011 per pt. Unknown abonrmality of pap 08/20/2017 10:29 AM CDT [facility] Last Pap Result First Pap/Unknown 10:29 AM CDT [facility] Abnormal Pap or [place] Bx in last 5 years Yes 08/20/2017 10:29 AM CDT [facility] Menstrual Status Regular Periods 08/20/2017 10:29 AM CDT [facility] [place] Bx Done Today No 08/20/2017 10:29 AM T [facility] Additional Information None given 08/20/2017 10:29 AM T [facility] Automated Review Successful 08/20/2017 10:29 AM CDT [facility] Comment:Specimen processed s uccessfully by automated investment broker device, ThinPrep Imaging System, [employer] Note The pap test is a screening technique, not a diagnostic procedure. It is used primarily to screen for squamous cancers and precursor lesions. Published studies have shown that it is subject to both false negative and false positive results. The pap test should not be used as the sole means to diagnose or exclude pre-malignant and malignant lesions. Cytology is screened and interpreted at [facility] - [address], [place] [address] and [facility] - [address] [place] [address]; [place] [address] and [facility] - [address]; [place] [address] and [facility] [address]; [place] [address] 08/20/2017 10:29 AM CDT [facility] EN[facility]AL [facility] Other (Cervical) Non-Blood / Unknown 08/11/2017 2:20 PM CDT 08/11/2017 3:37 PM CDT us Shey Blackman NP PATHOLOGY/CYTOL OGY Final Result [facility] [address] [place] [address], [place] from Last 3 Months or Most Recently Relevant to Health Maintenance Insurance [facility] Member Subscriber Plan / Payer (Ef fective 2019-Present) Name:Peyton Cerna Relation to Subscriber:Self Name:Peyton Cerna Payer ID:Not on file Type:Not on file Address: [address] Care Teams Board Certified Music Therapist Relationship Specialty Start Date End Date Pcp, No . PCP - General 02/11/13
[2024-12-08 13:38] VITALS: BP 121/69; PULSE 88; RESP 16; TEMP 37.1; O2SAT 96; BMI 25.8
--- NOTE | 2024-12-08 13:55 | CRLHL7_ITS ---
For Patients: As a result of the Century Cures Act, medical imaging exams and procedure reports are released immediately into your electronic medical record. You may view this report before your referring provider. If you have questions, please contact your health care provider. INDICATION: Cramping COMPARISON: Obstetric ultrasound on 09/20/2024 TECHNIQUE: Limited obstetric ultrasound, transabdominal approach, utilizing grayscale and color Doppler FINDINGS: Sonographic imaging demonstrates a single living intrauterine gestation. The fetus has a regular cardiac rate of 154 beats per minute. The fetus has a breech orientation. The placenta lies anterior without evidence of placenta previa or abruption. Amniotic fluid volume appears normal with single deepest pocket of 4.4 centimeters. The cervix is closed and measures 4.3 cm in length. The bilateral adnexa are unremarkable. No free fluid. IMPRESSION: Unremarkable limited obstetric ultrasound with no sonographic evidence of complication. Dictated by Yordy Zuluaga MD @ 12/08/2024 3:05:47 PM (Electronically Signed)
--- NOTE | 2024-12-08 13:57 | ED.GENADULT ---
HPI - General Adult General Chief complaint: OB/Uterine Contractions Stated complaint: cramping, 17 wks preg Time Seen by Provider: 12/08/24 13:30 History of Present Illness HPI narrative: 34 year white female who has got a child at home, is about 17 weeks by estimated gestational age . She is followed by OB at a [facility] a clinic. She had an ultrasound early in her . She reports some bilateral groin pain that is worse with motion or discomfort. She felt like it is worse on the left little bit on the right she has had round ligament pain with her prior and states ?it feels the same?. She denies any vaginal bleeding. No real abdominal cramping. She denies back pain. She denies shortness of breath chest pain or breathing problem. She has had no vaginal bleeding as mention. 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 She has had a recent cold with sore throat, body aches. She denies fever. Denies dysuria or urinary symptoms. Related Data Home Medications ?Medication ?Instructions ?Recorded ?Confirmed lactobacillus combination no.9 4 4,000 mmu cells PO QDAY 11/05/22 07/29/24 billion cell capsule (Adult 50 Plus Probiotic) lysine 500 mg tablet (L-Lysine) 500 mg PO QDAY 11/05/22 07/29/24 tretinoin 0.025 % topical cream applic topical 11/05/22 07/29/24 bupropion HCl 300 mg 24 hr tablet, mg PO DAILY 04/01/24 07/29/24 extended release escitalopram oxalate 5 mg tablet 5 mg PO DAILY 04/01/24 07/29/24 estradiol 10 mcg vaginal tablet mcg vaginal 04/01/24 07/29/24 Previous Rx's ?Medication ?Instructions ?Recorded ondansetron 4 mg disintegrating 4 mg PO .q6hr #7 tabs 03/14/23 tablet triamcinolone acetonide 0.1 % 1 applic topical QDAY #30 grams 05/06/23 topical ointment levonorgestrel-ethinyl estradiol 1 tab PO QDAY #84 tabs 07/29/24 0.1 mg-20 mcg tablet (Lessina) Allergies Allergy/AdvReac Type Severity Reaction Status Date / Time doxycycline Allergy Severe throat Verified 12/08/24 13:34 swelling lamotrigine (From Lamictal) Allergy Severe Verified 12/08/24 13:34 Review of Systems Status of ROS: Reports: 6 or more systems reviewed and unremarkable except as noted in History and below PFSH PFS Medical History OCD (obsessive compulsive disorder) ?F42.9 - Obsessive-compulsive disorder, unspecified (ICD-10) History of meningitis (2005) ?Z86.61 - Personal history of infections of the central nervous system (ICD-10) Stimulant abuse ?F15.10 - Other stimulant abuse, uncomplicated (ICD-10) History of alcohol use disorder ?Z87.898 - Personal history of other specified conditions (ICD-10) Anxiety attack ?F41.0 - Panic disorder [episodic paroxysmal anxiety] (ICD-10) Vulvar discomfort ?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 (ICD-10) PTSD (post-traumatic stress disorder) ?F43.10 - Post-traumatic stress disorder, unspecified (ICD-10) Melanoma (2019) ?C43.9 - Malignant melanoma of skin, unspecified (ICD-10) Anxiety ?F41.9 - Anxiety disorder, unspecified (ICD-10) 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, 1 3-year-old child, moved from [facility] Does not drink alcohol since 2017 Never smoker Uses THC gummies What is your current living situation?: I presently have a place to live Problems where you live: no known problems In the past 12 months, utilities in danger of being shut off: no In past 12 months, lack of transportation kept you from medical appts, meetings, work, or getting things needed for daily living: no In the past 12 mos, have been you worried that your food would run out before you had money to buy more?: never true In the past 12 mos, the food you bought just didn't last and you didn't have money to buy more?: never true Smoking Status: Never smoker Non-prescribed substance use: denies use How often does anyone, including family, friends and others, physically hurt you: never How often does anyone, including family, friends and others, insult or talk down to you: never How often does anyone, including family, friends and others, threaten you with harm: never How often does anyone, including family, friends and others, scream or curse at you: never Exam Narrative: Exam Narrative: Objective: Patient has stable vital signs. She has no other distress noted noncyanotic HEENT shows throat clear neck is supple Pulses regular Abdomen is gravid nontender Extremities are no edema Neurologic nonfocal Good peripheral perfusion noted. Const: Vital Signs, click to edit/add: Vital Signs - 24 hr 12/08/24 13:38 Temperature 98.7 F Pulse Rate [Pulse Oximeter] 88 Respiratory Rate 16 Blood Pressure [Le ft Upper Arm] 121/69 Pulse Oximetry 96 Oxygen Delivery Me thod Room Air Course Vital Signs Vital signs: Initial Vital Signs Temperature 98.7 F 12/08/24 13:38 Temperature Source Temporal Artery Scan 12/08/24 13:38 Pulse Rate 88 12/08/24 13:38 Respiratory Rate 16 12/08/24 13:38 Blood Pressure 121/69 12/08/24 13:38 Blood Pressure Mean 86 12/08/24 13:38 Blood Pressure Position Semi-Fowlers 12/08/24 13:38 Pulse Oximetry 96 12/08/24 13:38 Oxygen Delivery Method Room Air 12/08/24 13:38 Vital Signs Temperature 98.7 F 12/08/24 13:38 Pulse Rate 88 12/08/24 13:38 Respiratory Rate 16 12/08/24 13:38 Blood Pressure 121/69 12/08/24 13:38 Pulse Oximetry 96 12/08/24 13:38 Oxygen Delivery Method Room Air 12/08/24 13:38 Temperature 98.7 F 12/08/24 13:38 Pulse Rate 88 12/08/24 13:38 Respiratory Rate 16 12/08/24 13:38 Blood Pressure 121/69 12/08/24 13:38 Pulse Oximetry 96 12/08/24 13:38 Oxygen Delivery Method Room Air 12/08/24 13:38 Medical Decision Making MDM Narrative Medical decision making narrative: 34-year-old female with about 17 weeks estimated gestational age by LMP. Presents with bilateral groin pain left greater than right consistent with round ligament pain. She has no vaginal bleeding or contraction feeling. Tylenol recommended for this observation. Because of her cold symptoms will also get a strep test, a triple swab. We can call her back with results of this testing and we will give her some oral fluids to drink today she is stay Ellik adequately hydrated. For completeness because of the change in her status will get an ultrasound of her . Disposition based on the findings above. Addendum 2:42 p.m.: Patient's ultrasound looks reassuring by tech review. Normal with senna and no evidence of subchorionic hemorrhage or other abnormality. Good heart tones. Patient is strep and viral studies are pending. Will call the her the results if there is any positives. Recommend rest, light activity Tylenol for the round ligament pain. Return if problems or concerns , update her OB in the next few days. Lab Data Labs: Lab Results 12/08/24 Range/Units 13:55 SARS-CoV-2 (PCR) Negative SARS-CoV-2 (Negative) Influenza Type A (PCR) Negative PCR FLU A (Negative) Influenza Type B (PCR) Negative PCR FLU B (Negative) RSV (PCR) Negative PCR RSV (Negative) Group A Strep DNA NOT DETECTED (Not Detectd) Discharge Plan Discharge Clinical Impression: Pain of round ligament, Pharyngitis Patient Disposition: Home, Self-Care Condition: Stable Additional Instructions: Recommend off school for a couple of days, light activity, Tylenol for the round ligament pain, update your OB in the next 2-3 days if problems or concerns, otherwise return to the ED if issues. Activity Level: Light activity Discharge Diet: Regular Prescriptions: No Action lysine [L-Lysine] 500 mg tablet 500 mg PO QDAY Adult 50 Plus Probiotic 4 billion cell capsule 4,000 mmu cells PO QDAY tretinoin 0.025 % cream topical ondansetron 4 mg tablet,disintegrating 4 mg PO .q6hr Qty: 7 0RF triamcinolone acetonide 0.1 % ointment 1 applic topical QDAY Qty: 30 1RF levonorgestrel-ethinyl estrad [Lessina] 0.1-20 mg-mcg tablet 1 tab PO QDAY Qty: 84 4RF bupropion HCl 300 mg tablet extended release 24 hr PO DAILY escitalopram oxalate 5 mg tablet 5 mg PO DAILY estradiol 10 mcg tablet vaginal Follow Up/Referrals: Provider,Not a Local [Primary Care Provider, Family Practice] Stand Alone Forms: [employer] Info Instructions
[2024-12-08 15:13] LABS: Strep A DNA Probe* NOT DETECTED (Not Detectd)
[2024-12-08 15:25] LABS: PCR FLU A Negative PCR FLU A (Negative); PCR FLU B Negative PCR FLU B (Negative); PCR RSV Negative PCR RSV (Negative); SARS PCR* Negative SARS-CoV-2 (Negative)
== END 2024-12-08 14:54 | disposition home or self-care (01) ==
PROVIDERS: Emergency Provider Family Medicine
DX: R25.2 Cramp and spasm (principal); R10.30 Lower abdominal pain, unspecified; Z3A.17 17 weeks gestation of pregnancy
CPT/HCPCS: 76815; 87631; 87651; 99284

== ENCOUNTER 2025-01-22 15:14 | Emergency (ER) | payer BC, MEDICARE, SELFPAY ==
[2025-01-22 15:25] VITALS: BP 109/64; PULSE 94; RESP 20; TEMP 37; O2SAT 96; BMI 30.9
--- NOTE | 2025-01-22 16:17 | ED_ITS ---
HPI - Headache General Chief Complaint: Headache/Migraine Stated Complaint: bad headaches, nose bleeds Time Seen by Provider: 01/22/25 15:59 History of Present Illness HPI Narrative: This 34-year-old female is 24 weeks and comes in reporting a headache that became more severe a couple times over the past day or so. She rated it at 10/10 earlier today but currently is much better at 3/10 in severity. She did not have any nausea or vomiting but did have some sensitivity to light. She states that the headache seemed to begin in her upper neck or lower occipital area and extend upwards to her head above. She does get headaches on occasion but this 1 was more intense. She called the OB clinic and was instructed to come here. She also reports some recurrent nose bleeds but again currently is not have any such bleeding now. She has been following the plans for her OB visits. She had her labs checked and these were all in normal range. She does not have any bleeding or a coagulating problem in her past history. She was reassured to hear that her blood pressure was normal on arrival as she was starting also did think about preeclampsia. Related Data Home Medications ?Medication ?Instructions ?Recorded ?Confirmed lactobacillus combination no.9 4 4,000 mmu cells PO QD AY 11/05/22 01/22/25 billion cell capsule (Adult 50 Plus Probiotic) lysine 500 mg tablet (L-Lysine) 500 mg PO QDAY 3 07/29/24 tretinoin 0.025 % topical cream applic topical 3 07/29/24 bupropion HCl 300 mg 24 hr tablet, 300 mg PO DAILY 01/22/25 extended release escitalopram oxalate 5 mg tablet 5 mg PO DAILY 5 01/22/25 estradiol 10 mcg vaginal tablet mcg vaginal 04/01/24 0 07/29/24 Previous Rx's ?Medication ?Instructions ?Recorded ondansetron 4 mg disintegrating 4 mg PO .q6hr #7 tabs 03/14/23 tablet triamcinolone acetonide 0.1 % 1 applic topical QDAY #3 0 grams 05/06/23 topical ointment levonorgestrel-ethinyl estradiol 1 tab PO QDAY #84 tab s 07/29/24 0.1 mg-20 mcg tablet (Lessina) ketorolac 10 mg tablet 10 mg PO TID 5 days #10 tabs 01/22/25 ondansetron 4 mg disintegrating 4 mg PO Q6H #20 tabs 1 03/24/24 tablet Allergies Allergy/AdvReac Type Severity Reaction Status Date / Time doxycycline Allergy Severe throat Verified 01/22/25 15:30 swelling lamotrigine (From Lamictal) Allergy Severe Verified 01/22/25 15:30 Review of Systems Status of ROS: Reports: 10 or more systems reviewed and unremarkable except as noted in History and below Narrative: Constitutional: No fevers, no weight gain or loss. Eyes: No discharge. No vision changes. She reports some sensitivity to light. HENT: No congestion, no sore throat, no ear pain. Cardiovascular: No chest pain, no palpitations. Respiratory: No shortness of breath, no wheezes, no cough. Gastrointestinal: No abdominal pain, no vomiting, no diarrhea. Genitourinary: No dysuria, no hematuria. Musculoskeletal: Normal range of motion. Skin: No rashes, no pruritis. Neurological: No dizziness, weakness, sensory change, speech change. Endo/Heme/Allergies: No bruising or bleeding. No polydipsia. Pysch: no suicidality, no anxiety, no insomnia. All other systems reviewed and are negative. [facility] Medical History OCD (obsessive compulsive disorder) ?F42.9 - Obsessive-compulsive disorder, unspecified (ICD-10) History of meningitis (2005) ?Z86.61 - Personal history of infections of the central nervous system (ICD- 10) Stimulant abuse ?F15.10 - Other stimulant abuse, uncomplicated (ICD-10) History of alcohol use disorder ?Z87.898 - Personal history of other specified conditions (ICD-10) Anxiety attack ?F41.0 - Panic disorder [episodic paroxysmal anxiety] (ICD-10) Vulvar discomfort ?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 (ICD-10) PTSD (post-traumatic stress disorder) ?F43.10 - Post-traumatic stress disorder, unspecified (ICD-10) Melanoma (2019) ?C43.9 - Malignant melanoma of skin, unspecified (ICD-10) Anxiety ?F41.9 - Anxiety disorder, unspecified (ICD-10) 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) Chlamydia ?A74.9 - Chlamydial infection, unspecified (ICD-10) Surgical History H/O melanoma excision (2019) ?Z98.890 - Other specified postprocedural states (ICD-10) ?Z85.820 - Personal history of malignant melanoma of skin (ICD-10) Family History Paternal Grandfather Stroke, Onset Age: 80 Maternal Grandmother Ovarian cancer Father Atrial fibrillation Depression OCD (obsessive compulsive disorder) Anxiety disorder Maternal Grandfather FH: testicular cancer, Onset Age: 60 Mother Anxiety disorder Social History Narrative: , [id number] mom, student of [employer], 1 3-year-old child, moved from [facility] Does not drink alcohol since 2017 Never smoker Uses THC gummies What is your current living situation?: I presently have a place to live Problems where you live: no known problems In the past 12 months, utilities in danger of being shut off: no In past 12 months, lack of transportation kept you from medical appts, meetings, work, or getting things needed for daily living: no In the past 12 mos, have been you worried that your food would run out before you had money to buy more?: never true In the past 12 mos, the food you bought just didn't last and you didn't have money to buy more?: never true Smoking Status: Never smoker Non-prescribed substance use: denies use How often does anyone, including family, friends and others, physically hurt you : never How often does anyone, including family, friends and others, insult or talk down to you: never How often does anyone, including family, friends and others, threaten you with harm: never How often does anyone, including family, friends and others, scream or curse at you: never Exam Narrative: Exam Narrative: Constitutional: Well-developed, well-nourished, no acute distress. HEENT: Normocephalic, atraumatic. Neck: Normal range of motion. Nontender. Supple. Heart: Intact distal pulses. Lungs: No chest discomfort. No wheezes, rhonchi, or rales. Abdomen: Nontender. Back: Normal range of motion. Extremities: Normal range of motion. No injury. Skin: Intact. No rash. Warm. No erythema or pallor. Neurologic: No altered sensation. No weakness. Alert and oriented. Speech is normal. No facial asymmetry. Psychiatric: No suicidality. No anxiety or depression. No insomnia. Nursing notes and vitals signs are reviewed. Const: Vital Signs, click to edit/add: Vital Signs - 24 hr 01/22/25 15:25 Temperature 98.6 F Pulse Rate [Pulse Oximeter] 94 Respiratory Rate 20 Blood Pressure [Ri ght Upper Arm] 109/64 Pulse Oximetry 96 Oxygen Delivery Me thod Room Air Course Vital Signs Vital signs: Initial Vital Signs Temperature 98.6 F 01/22/25 15:25 Temperature Source Temporal Artery Scan 01/22/25 15:25 Pulse Rate 94 01/22/25 15:25 Pulse Rhythm Regular 01/22/25 15:25 Respiratory Rate 20 01/22/25 15:25 Blood Pressure 109/64 01/22/25 15:25 Blood Pressure Mean 79 01/22/25 15:25 Blood Pressure Position Sitting 01/22/25 15:25 Pulse Oximetry 96 01/22/25 15:25 Oxygen Delivery Method Room Air 01/22/25 15:25 Vital Signs Temperature 98.6 F 01/22/25 15:25 Pulse Rate 94 01/22/25 15:25 Respiratory Rate 20 01/22/25 15:25 Blood Pressure 109/64 01/22/25 15:25 Pulse Oximetry 96 01/22/25 15:25 Oxygen Delivery Method Room Air 01/22/25 15:25 Temperature 98.6 F 01/22/25 15:25 Pulse Rate 94 01/22/25 15:25 Respiratory Rate 20 01/22/25 15:25 Blood Pressure 109/64 01/22/25 15:25 Pulse Oximetry 96 01/22/25 15:25 Oxygen Delivery Method Room Air 01/22/25 15:25 MDM - Headache MDM Narrative Medical decision making narrative: This patient comes in with concern and some anxiety about how severe her headache was earlier. She states now that her headache is rather mild. She also reports some nose bleeds but has not had any bleeding recently. I did discuss lab and imaging options in the context of being 24 weeks gestation in her . She declined these for now and states that she has had normal labs throughout her Ob process in the clinic. She did receive an oral dose of Toradol and Zofran. I did explain that Toradol can be used in in the 1st 2 trimesters and should be used sparingly. A prescription for these 2 medicines was provided for her also. Discharge Plan Discharge Clinical Impression: Headache, Second trimester Patient Disposition: Home, Self-Care Condition: Stable Additional Instructions: Take medication as needed and directed. Continue other current plans. Follow up with MD return if worsening. Prescriptions: New ketorolac 10 mg tablet 10 mg PO TID 5 Days Qty: 10 0RF ondansetron 4 mg tablet,disintegrating 4 mg PO Q6H Qty: 20 0RF No Action lysine [L-Lysine] 500 mg tablet 500 mg PO QDAY Adult 50 Plus Probiotic 4 billion cell capsule 4,000 mmu cells PO QDAY tretinoin 0.025 % cream topical ondansetron 4 mg tablet,disintegrating 4 mg PO .q6hr Qty: 7 0RF triamcinolone acetonide 0.1 % ointment 1 applic topical QDAY Qty: 30 1RF levonorgestrel-ethinyl estrad [Lessina] 0.1-20 mg-mcg tablet 1 tab PO QDAY Qty: 84 4RF bupropion HCl 300 mg tablet extended release 24 hr 300 mg PO DAILY escitalopram oxalate 5 mg tablet 5 mg PO DAILY estradiol 10 mcg tablet vaginal Follow Up/Referrals: Provider,Not a Local [Primary Care Provider, Family Practice] Stand Alone Forms: [employer] Info Instructions
[2025-01-22] MEDS: ONDANSETRON ODT 4 MG TAB PO (16:38)
[2025-01-22] MEDS: KETOROLAC 10 MG TABLET PO (16:38)
--- OUTSIDE RECORDS SUMMARY | 2025-01-22 16:38 | XMS_ITS | CCD ---
Author Name Interface, [id number] lity Address [address] [facility] [address] [address] Organization [facility] Address [address] [facility] [address] [address] Care Team Providers Care Plant Utility Person Name Role Phone Vera SANTANA, Max Unavailable Unavai lable Allergies and Adverse Reactions Medication/Group Name Reaction Severity Date No known allergies Reason for Visit [facility] - RECONSULT DISCUSS SLN BX - RECONSULT DISCUSS SLN BX Medications Date Name Route Dose Frequency Instructions Start Date End Date Status Fill Status Indication 12/27 Miscellane ous Drug PO 1.0 TABLE T(S) daily 2018 active 12/27 Vit-Iron Fumarate-F A Oral 27 mg iron-0.8 mg PO 1.0 TABLE T(S) as directed 2018 active Problems Diagnosis Status Date of Diagnosis Resolution Date Body mass index (BMI) 21.0-21.9, adult Inactive Malignant melanoma of skin (disorder) Active Social History Date Name Value 10/19/2019 Sex Female
--- OUTSIDE RECORDS SUMMARY | 2025-01-22 16:38 | XMS_ITS | CCD ---
Author Name Interface, [id number] lity Address [address] [facility] [address] [address] Organization [facility] Address [address] [facility] [address] [address] Care Team Providers Care Traffic Clerk Name Role Phone Vera SANTANA, Max Unavailable [...]
--- OUTSIDE RECORDS SUMMARY | 2025-01-22 16:38 | XMS_ITS | CCD ---
Author Name Interface, [id number] lity Address [address] [facility] [address] [address] Organization [facility] Address [address] [facility] [address] [address] Care Team Providers Care Gem Cutter Name Role Phone Vera SANTANA, Max Unavailable [...]
--- OUTSIDE RECORDS SUMMARY | 2025-01-22 16:39 | XMS_ITS | CCD ---
Author Name Interface, [id number] lity Address [address] [facility] [address] [address] Organization [facility] Address [address] [facility] [address] [address] Care Team Providers Care Strap Buckler Machine Name Role Phone Vera SANTANA, Max Unavailable [...]
--- OUTSIDE RECORDS SUMMARY | 2025-01-22 16:39 | XMS_ITS | CCD ---
Author Name Interface, [id number] lity Address [address] [facility] [address] [address] Organization [facility] Address [address] [facility] [address] [address] Care Team Providers Care Soft Sugar Operator Head Name Role Phone Vera SANTANA, Max Unavailable [...]
--- OUTSIDE RECORDS SUMMARY | 2025-01-22 16:39 | XMS_ITS | CCD ---
Author Name Interface, [id number] lity Address [address] [facility] [address] [address] Organization [facility] Address [address] [facility] [address] [address] Care Team Providers Care Data Services Developer Name Role Phone Vera SANTANA, Max Unavailable [...]
--- OUTSIDE RECORDS SUMMARY | 2025-01-22 16:39 | XMS_ITS | CCD ---
Author Name Interface, [id number] lity Address [address] [facility] [address] [address] Organization [facility] Address [address] [facility] [address] [address] Care Team Providers Care Rn Pool Name Role Phone Vera SANTANA, Max Unavailable [...]
--- OUTSIDE RECORDS SUMMARY | 2025-01-22 16:40 | XMS_ITS | CCD ---
Author Name Interface, [id number] lity Address [address] [facility] [address] [address] Organization [facility] Address [address] [facility] [address] [address] Care Team Providers Care Tile Layer Drainage Name Role Phone Vera SANTANA, Max Unavailable [...]
--- OUTSIDE RECORDS SUMMARY | 2025-01-22 16:40 | XMS_ITS | CCD ---
Author Name Interface, [id number] lity Address [address] [facility] [address] [address] Organization [facility] Address [address] [facility] [address] [address] Care Team Providers Care Hospital Admissions Officer Name Role Phone Vera SANTANA, Max Unavailable [...]
--- OUTSIDE RECORDS SUMMARY | 2025-01-22 16:40 | XMS_ITS | CCD ---
Author Name Interface, [id number] lity Address [address] [facility] [address] [address] Organization [facility] Address [address] [facility] [address] [address] Care Team Providers Care Acid Painter Name Role Phone Vera SANTANA, Max Unavailable [...]
--- OUTSIDE RECORDS SUMMARY | 2025-01-22 16:41 | XMS_ITS | CCD ---
Author Name Interface, [id number] lity Address [address] [facility] [address] [address] Organization [facility] Address [address] [facility] [address] [address] Care Team Providers Care Caving Guide Name Role Phone Vera SANTANA, Max Unavailable [...]
--- OUTSIDE RECORDS SUMMARY | 2025-01-22 16:42 | XMS_ITS | CCD ---
Author Name Interface, [id number] lity Address [address] [facility] [address] [address] Organization [facility] Address [address] [facility] [address] [address] Care Team Providers Care Snow Technician Name Role Phone Vera SANTANA, Max Unavailable [...]
--- OUTSIDE RECORDS SUMMARY | 2025-01-22 16:42 | XMS_ITS | CCD ---
Author Name Interface, [id number] lity Address [address] [facility] [address] [address] Organization [facility] Address [address] [facility] [address] [address] Care Team Providers Care Stripping And Booking Machine Operator Name Role Phone Vera SANTANA, Max Unavailable [...]
--- OUTSIDE RECORDS SUMMARY | 2025-01-22 16:42 | XMS_ITS | CCD ---
Author Name Interface, [id number] lity Address [address] [facility] [address] [address] Organization [facility] Address [address] [facility] [address] [address] Care Team Providers Care Medical Imaging Specialist Name Role Phone Vera SANTANA, Max Unavailable [...]
--- OUTSIDE RECORDS SUMMARY | 2025-01-22 16:43 | XMS_ITS | CCD ---
Author Name Interface, [id number] lity Address [address] [facility] [address] [address] Organization [facility] Address [address] [facility] [address] [address] Care Team Providers Care Wall Steamer Name Role Phone Vera SANTANA, Max Unavailable [...]
--- OUTSIDE RECORDS SUMMARY | 2025-01-22 16:43 | XMS_ITS | CCD ---
Author Name Interface, [id number] lity Address [address] [facility] [address] [address] Organization [facility] Address [address] [facility] [address] [address] Care Team Providers Care Auto Rebuilder Name Role Phone Vera SANTANA, Max Unavailable [...]
--- OUTSIDE RECORDS SUMMARY | 2025-01-22 16:43 | XMS_ITS | CCD ---
Author Name Interface, [id number] lity Address [address] [facility] [address] [address] Organization [facility] Address [address] [facility] [address] [address] Care Team Providers Care Medical Technologist Chemistry Name Role Phone Vera SANTANA, Max Unavailable [...]
--- OUTSIDE RECORDS SUMMARY | 2025-01-22 16:43 | XMS_ITS | CCD ---
Author Name Interface, [id number] lity Address [address] [facility] [address] [address] Organization [facility] Address [address] [facility] [address] [address] Care Team Providers Care Rn Clinical Documentation Name Role Phone Vera SANTANA, Max Unavailable [...]
--- OUTSIDE RECORDS SUMMARY | 2025-01-22 16:44 | XMS_ITS | CCD ---
Author Name Interface, [id number] lity Address [address] [facility] [address] [address] Organization [facility] Address [address] [facility] [address] [address] Care Team Providers Care Nut Roaster Name Role Phone Vera SANTANA, Max Unavailable [...]
--- OUTSIDE RECORDS SUMMARY | 2025-01-22 16:44 | XMS_ITS | CCD ---
Author Name Interface, [id number] lity Address [address] [facility] [address] [address] Organization [facility] Address [address] [facility] [address] [address] Care Team Providers Care Lube Worker Name Role Phone Vera SANTANA, Max Unavailable [...]
--- OUTSIDE RECORDS SUMMARY | 2025-01-22 16:45 | XMS_ITS | Clinical Summary ---
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 08/20/2017 10:[address] [facility] at 1029 CDT SPECIMEN ADEQUACY Satisfactory for evaluation Endocervical component present 08/20/2017 10:[address] [facility] HPV REQUEST HPV if ASCUS 08/20/2017 10:29 AM [facility] Date of LMP 07/31/2017 08/20/2017 10:29 AM T [facility] Last Pap Date 2009 or 2011 per pt. Unknown abonrmality of pap 08/20/2017 10:29 AM CDT [facility] Last Pap Result First Pap/Unknown 10:29 AM T [facility] Abnormal Pap or Solomon Bx in last 5 years Yes 08/20/2017 10:[address] [facility] Menstrual Status Regular Periods 08/20/2017 10:[address] [facility] Solomon Bx Done Today No 08/20/2017 10:[address] [facility] Additional Information None given 08/20/2017 10:29 AM [facility] Automated Review Successful 08/20/2017 10:29 AM [facility] Comment:Specimen processed s uccessfully by automated licensed nuclear operator device, ThinPrep Imaging System, [employer] Note The pap test is a [...] lesions. Cytology is screened and interpreted at [facility] - [address], [place] [address] and [facility] - [address]; [place] [address] and [facility] - [address]; [place] [address] and [facility] [address]; [place] [address] 08/20/2017 10:29 AM CDT [facility] Other (Cervical) Non-Blood / Unknown 08/11/2017 2:20 PM CDT 08/11/2017 3:37 PM CDT us Shey Blackman NP PATHOLOGY/CYTOL OGY Final Result [facility] [address] [place] [address], [place] from Last 3 Months or Most Recently Relevant to Health Maintenance Insurance [facility] Care Teams Telegraph Installer Relationship Specialty Start Date End Date Pcp, No . PCP - General 02/11/13
--- OUTSIDE RECORDS SUMMARY | 2025-01-22 16:45 | XMS_ITS | CCD ---
Author Name Interface, C2Hmqyhra lity Address [address] [facility] [address] [address] Organization [facility] Address [address] [facility] [address] [address] Care Team Providers Care Glass Bulb Silverer Name Role Phone Vera SANTANA, Max Unavailable [...]
--- OUTSIDE RECORDS SUMMARY | 2025-01-22 16:45 | XMS_ITS | CCD ---
Author Name Interface, I1Dgfwgiz lity Address [address] [facility] [address] [address] Organization [facility] Address [address] [facility] [address] [address] Care Team Providers Care Machine Sweeper Brush Maker Name Role Phone Vera SANTANA, Max Unavailable [...]
--- OUTSIDE RECORDS SUMMARY | 2025-01-22 16:46 | XMS_ITS | CCD ---
Author Name Interface, A0Elguoix lity Address [address] [facility] [address] [address] Organization [facility] Address [address] [facility] [address] [address] Care Team Providers Care Architectural Engineer Name Role Phone Vera SANTANA, Max Unavailable [...]
--- OUTSIDE RECORDS SUMMARY | 2025-01-22 16:46 | XMS_ITS | CCD ---
Author Name Interface, A6Ibsbbai lity Address [address] [facility] [address] [address] Organization [facility] Address [address] [facility] [address] [address] Care Team Providers Care Engineer System Administrator Name Role Phone Vera SANTANA, Max Unavailable [...]
--- OUTSIDE RECORDS SUMMARY | 2025-01-22 16:46 | XMS_ITS | CCD ---
Author Name Interface, B3Tzlkyml lity Address [address] [facility] [address] [address] Organization [facility] Address [address] [facility] [address] [address] Care Team Providers Care Bdc Manager Name Role Phone Vera SANTANA, Max Unavailable [...]
--- OUTSIDE RECORDS SUMMARY | 2025-01-22 16:46 | XMS_ITS | CCD ---
Author Name Interface, U5Sehoxea lity Address [address] [facility] [address] [address] Organization [facility] Address [address] [facility] [address] [address] Care Team Providers Care Dock Or Pier Laborer Name Role Phone Vera SANTANA, Max Unavailable [...]
--- OUTSIDE RECORDS SUMMARY | 2025-01-22 16:47 | XMS_ITS | CCD ---
Author Name Interface, I1Jswxuod lity Address [address] [facility] [address] [address] Organization [facility] Address [address] [facility] [address] [address] Care Team Providers Care Radiologist Diagnostic Name Role Phone Vera SANTANA, Max Unavailable [...]
--- OUTSIDE RECORDS SUMMARY | 2025-01-22 16:48 | XMS_ITS | CCD ---
Author Name Interface, L2Qxlikom lity Address [address] [facility] [address] [address] Organization [facility] Address [address] [facility] [address] [address] Care Team Providers Care Floor Supervisor Name Role Phone Vera SANTANA, Max Unavailable [...]
--- OUTSIDE RECORDS SUMMARY | 2025-01-22 16:48 | XMS_ITS | CCD ---
Author Name Interface, D5Hbyrpob lity Address [address] [facility] [address] [address] Organization [facility] Address [address] [facility] [address] [address] Care Team Providers Care Rural Electrification Engineer Name Role Phone Vera SANTANA, Max [...]
--- OUTSIDE RECORDS SUMMARY | 2025-01-22 16:48 | XMS_ITS | CCD ---
Author Name Interface, F3Lujjind lity Address [address] [facility] [address] [address] Organization [facility] Address [address] [facility] [address] [address] Care Team Providers Care Fall Intern Name Role Phone Vera SANTANA, Max Unavailable [...]
--- OUTSIDE RECORDS SUMMARY | 2025-01-22 16:49 | XMS_ITS | CCD ---
Author Name Interface, Q8Gezdruk lity Address [address] [facility] [address] [address] Organization [facility] Address [address] [facility] [address] [address] Care Team Providers Care Stem Maker Name Role Phone Vera SANTANA, Max [...]
--- OUTSIDE RECORDS SUMMARY | 2025-01-22 16:49 | XMS_ITS | CCD ---
Author Name Interface, N9Noorkih lity Address [address] [facility] [address] [address] Organization [facility] Address [address] [facility] [address] [address] Care Team Providers Care Tool Repairer Name Role Phone Vera SANTANA, Max Unavailable [...]
--- OUTSIDE RECORDS SUMMARY | 2025-01-22 16:49 | XMS_ITS | CCD ---
Author Name Interface, Y4Vjjrdiz lity Address [address] [facility] [address] [address] Organization [facility] Address [address] [facility] [address] [address] Care Team Providers Care Pourer Buggy Ladle Name Role Phone Vera SANTANA, Max Unavailable [...]
[2025-01-22 16:51] VITALS: BP 126/75; PULSE 87; RESP 16; O2SAT 96
--- OUTSIDE RECORDS SUMMARY | 2025-01-22 16:51 | XMS_ITS | Clinical Summary ---
Author Organization [facility] Address [address] [address] Care Team Providers Care Paper Cone Maker Name Role Phone Austin Morocho MD Primary Care Provider [phone] Source Comments You are receiving this document as you are listed as the primary care provider,follow-up provider, or the patient has been referred to you for consultation.This is in compliance with the Medicare and[facility] EHR Incentive Program,which states Providers who transition their patient to another setting of careor provider of care or refers their patient to another provider of care shouldprovide summary care record for each transition of care or referral. [facility] Allergies No known active allergies Medications fluoxetine [...] 37.3 C (99.1 F) 02/26/2022 12:49 PM GARAGE HELPER Respiratory Rate - - Oxygen Saturation - - Inhaled Oxygen Concentration - - Weight 64.4 kg (142 lb) 02/26/2022 12:49 PM GARAGE HELPER Height 167.6 cm (5' 6) 02/26/2022 12:49 PM GARAGE HELPER Body Mass Index 22.92 02/26/2022 12:49 PM GARAGE HELPER Plan of Treatment Health Maintenance Due Date [...] patient's age to complete this topic Insurance [facility] Care Teams Paper Cone Maker Relationship Specialty Start Date End Date Austin Morocho MD [address] [place] [address] PCP - General 06/12/10
--- OUTSIDE RECORDS SUMMARY | 2025-01-22 16:51 | XMS_ITS | CCD ---
Author Name Interface, G7Kckcjoy lity Address [address] [facility] [address] [address] Organization [facility] Address [address] [facility] [address] [address] Care Team Providers Care Ammonia Technician Name Role Phone Vera SANTANA, Max [...]
--- OUTSIDE RECORDS SUMMARY | 2025-01-22 16:51 | XMS_ITS | CCD ---
Author Name Interface, I1Sjsviha lity Address [address] [facility] [address] [address] Organization [facility] Address [address] [facility] [address] [address] Care Team Providers Care Online Marketer Name Role Phone Vera SANTANA, Max Unavailable [...]
--- OUTSIDE RECORDS SUMMARY | 2025-01-22 16:51 | XMS_ITS | CCD ---
Author Name Interface, L4Mtdgxaj lity Address [address] [facility] [address] [address] Organization [facility] Address [address] [facility] [address] [address] Care Team Providers Care Bobbin Cleaner Hand Name Role Phone Vera SANTANA, Max Unavailable [...]
--- OUTSIDE RECORDS SUMMARY | 2025-01-22 16:51 | XMS_ITS | CCD ---
Author Name Interface, A7Vksplkq lity Address [address] [facility] [address] [address] Organization [facility] Address [address] [facility] [address] [address] Care Team Providers Care Lens Assistant Name Role Phone Vera SANTANA, Max Unavailable [...]
--- OUTSIDE RECORDS SUMMARY | 2025-01-22 16:52 | XMS_ITS | Clinical Summary ---
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
--- OUTSIDE RECORDS SUMMARY | 2025-01-22 16:52 | XMS_ITS | CCD ---
Author Name Interface, Y0Xiqzxev lity Address [address] [facility] [address] [address] Organization [facility] Address [address] [facility] [address] [address] Care Team Providers Care Supervisor Mechanic Boilermaking Name Role Phone Vera SANTANA, Max Unavailable [...]
--- OUTSIDE RECORDS SUMMARY | 2025-01-22 16:52 | XMS_ITS | CCD ---
Author Name Interface, N7Sthiyfr lity Address [address] [facility] [address] [address] Organization [facility] Address [address] [facility] [address] [address] Care Team Providers Care Rim Technician Name Role Phone Vera SANTANA, Max [...]
--- OUTSIDE RECORDS SUMMARY | 2025-01-22 16:52 | XMS_ITS | CCD ---
Author Name Interface, S0Xklrled lity Address [address] [facility] [address] [address] Organization [facility] Address [address] [facility] [address] [address] Care Team Providers Care Systems Integration Engineer Name Role Phone Vera SANTANA, Max [...]
--- OUTSIDE RECORDS SUMMARY | 2025-01-22 16:53 | XMS_ITS | CCD ---
Author Name Interface, A4Vidtilj lity Address [address] [facility] [address] [address] Organization [facility] Address [address] [facility] [address] [address] Care Team Providers Care Agricultural Production Engineer Name Role Phone Vera SANTANA, Max [...]
--- OUTSIDE RECORDS SUMMARY | 2025-01-22 16:53 | XMS_ITS | CCD ---
Author Name Interface, J8Ifckhga lity Address [address] [facility] [address] [address] Organization [facility] Address [address] [facility] [address] [address] Care Team Providers Care Fuel Cell Systems Engineer Name Role Phone Vera SANTANA, Max [...]
--- OUTSIDE RECORDS SUMMARY | 2025-01-22 16:54 | XMS_ITS | CCD ---
Author Name Interface, V7Xdoxbng lity Address [address] [facility] [address] [address] Organization [facility] Address [address] [facility] [address] [address] Care Team Providers Care Director Of Partner Marketing Name Role Phone Vera SANTANA, Max Unavailable [...]
--- OUTSIDE RECORDS SUMMARY | 2025-01-22 16:54 | XMS_ITS | CCD ---
Author Name Interface, I1Qrcdvno lity Address [address] [facility] [address] [address] Organization [facility] Address [address] [facility] [address] [address] Care Team Providers Care Technician Plant And Maintenance Name Role Phone Vera SANTANA, Max Unavailable [...]
--- OUTSIDE RECORDS SUMMARY | 2025-01-22 16:54 | XMS_ITS | CCD ---
Author Name Interface, Y8Zbiaplf lity Address [address] [facility] [address] [address] Organization [facility] Address [address] [facility] [address] [address] Care Team Providers Care Fiber Technologist Name Role Phone Vera SANTANA, Max Unavailable [...]
--- OUTSIDE RECORDS SUMMARY | 2025-01-22 16:55 | XMS_ITS | CCD ---
Author Name Interface, X4Xjuwigg lity Address [address] [facility] [address] [address] Organization [facility] Address [address] [facility] [address] [address] Care Team Providers Care Darkroom Worker Name Role Phone Vera SANTANA, Max [...]
--- OUTSIDE RECORDS SUMMARY | 2025-01-22 16:55 | XMS_ITS | CCD ---
Author Name Interface, M2Qzvabld lity Address [address] [facility] [address] [address] Organization [facility] Address [address] [facility] [address] [address] Care Team Providers Care Solder Technician Name Role Phone Vera SANTANA, Max [...]
--- OUTSIDE RECORDS SUMMARY | 2025-01-22 16:55 | XMS_ITS | CCD ---
Author Name Interface, B5Gmnxogq lity Address [address] [facility] [address] [address] Organization [facility] Address [address] [facility] [address] [address] Care Team Providers Care Budget Report Clerk Name Role Phone Vera SANTANA, Max [...]
--- OUTSIDE RECORDS SUMMARY | 2025-01-22 16:56 | XMS_ITS | CCD ---
Author Name Interface, V7Hyouzlk lity Address [address] [facility] [address] [address] Organization [facility] Address [address] [facility] [address] [address] Care Team Providers Care Pellet Mill Operator Name Role Phone Vera SANTANA, Max [...]
--- OUTSIDE RECORDS SUMMARY | 2025-01-22 16:56 | XMS_ITS | CCD ---
Author Name Interface, Q7Mgktqqi lity Address [address] [facility] [address] [address] Organization [facility] Address [address] [facility] [address] [address] Care Team Providers Care Milk Collector Name Role Phone Vera SANTANA, Max Unavailable [...]
--- OUTSIDE RECORDS SUMMARY | 2025-01-22 16:56 | XMS_ITS | CCD ---
Author Name Interface, W0Ygiqlqz lity Address [address] [facility] [address] [address] Organization [facility] Address [address] [facility] [address] [address] Care Team Providers Care Automatic Packer Operator Name Role Phone Vera SANTANA, Max [...]
--- OUTSIDE RECORDS SUMMARY | 2025-01-22 16:56 | XMS_ITS | CCD ---
Author Name Interface, J3Thadnsn lity Address [address] [facility] [address] [address] Organization [facility] Address [address] [facility] [address] [address] Care Team Providers Care Articulation Officer Name Role Phone Vera SANTANA, Max [...]
--- OUTSIDE RECORDS SUMMARY | 2025-01-22 16:57 | XMS_ITS | CCD ---
Author Name Interface, K1Mpigrti lity Address [address] [facility] [address] [address] Organization [facility] Address [address] [facility] [address] [address] Care Team Providers Care Senior Medical Technologist Name Role Phone Vera SANTANA, Max [...]
--- OUTSIDE RECORDS SUMMARY | 2025-01-22 16:57 | XMS_ITS | CCD ---
Author Name Interface, K3Hcjmikh lity Address [address] [facility] [address] [address] Organization [facility] Address [address] [facility] [address] [address] Care Team Providers Care Bonbon Dipper Name Role Phone Vera SANTANA, Max Unavailable [...]
--- OUTSIDE RECORDS SUMMARY | 2025-01-22 16:57 | XMS_ITS | CCD ---
Author Name Interface, U3Isoyyyr lity Address [address] [facility] [address] [address] Organization [facility] Address [address] [facility] [address] [address] Care Team Providers Care Process Pumper Name Role Phone Vera SANTANA, Max Unavailable [...]
--- OUTSIDE RECORDS SUMMARY | 2025-01-22 16:58 | XMS_ITS | CCD ---
Author Name Interface, T2Esaypsu lity Address [address] [facility] [address] [address] Organization [facility] Address [address] [facility] [address] [address] Care Team Providers Care Primer Expeditor And Drier Name Role Phone Vera SANTANA, Max Unavailable [...]
--- OUTSIDE RECORDS SUMMARY | 2025-01-22 16:58 | XMS_ITS | CCD ---
Author Name Interface, H0Imjkcoe lity Address [address] [facility] [address] [address] Organization [facility] Address [address] [facility] [address] [address] Care Team Providers Care Electrical Development Engineer Name Role Phone Vera SANTANA, Max [...]
--- OUTSIDE RECORDS SUMMARY | 2025-01-22 16:58 | XMS_ITS | CCD ---
Author Name Interface, D5Xmdzcjd lity Address [address] [facility] [address] [address] Organization [facility] Address [address] [facility] [address] [address] Care Team Providers Care Procurement Intern Name Role Phone Vera SANTANA, Max [...]
--- OUTSIDE RECORDS SUMMARY | 2025-01-22 16:59 | XMS_ITS | CCD ---
Author Name Interface, O3Xsxpsvt lity Address [address] [facility] [address] [address] Organization [facility] Address [address] [facility] [address] [address] Care Team Providers Care Painter Hand Name Role Phone Vera SANTANA, Max [...]
--- OUTSIDE RECORDS SUMMARY | 2025-01-22 16:59 | XMS_ITS | CCD ---
Author Name Interface, E8Oyblqnt lity Address [address] [facility] [address] [address] Organization [facility] Address [address] [facility] [address] [address] Care Team Providers Care Art Appraiser Name Role Phone Vera SANTANA, Max Unavailable [...]
== END 2025-01-22 16:57 | disposition home or self-care (01) ==
LOC: ED 16:25
PROVIDERS: Emergency Provider Emergency Medicine Emergency Medical Services
DX: R51.9 Headache, unspecified (principal); Z33.1 Pregnant state, incidental
CPT/HCPCS: 99283; 99284; A9270

== ENCOUNTER 2025-02-04 11:12 | Outpatient (CLI) | payer BC, MEDICARE, SELFPAY ==
[2025-02-04] VITALS (10 sets, daily range): BP systolic 111; BP diastolic 56; PULSE 86–91; RESP 16; TEMP 36.9; O2SAT 96–98
[2025-02-04 12:14] LABS: Amnisure Rom* Negative
--- NOTE | 2025-02-04 12:47 | PC.OBNST ---
NST Note NST Note Start: 02/04/25 11:41 Freq: ONCE Status: Active Protocol: Document 02/04/25 12:46 BAW (Rec: 02/04/25 12:47 BAW No Response) NST Note 2 Para (# of births) 1 EDC 05/15/25 Gestational Age In 25 Weeks & 5 Days Weeks & Days High Risk Factors Advanced Maternal Age Patient Presented Observation after an injury with Complaint(s) of Other Complaints pt. feel on butt and hit head Reactive Yes Appropriate for Yes Gestational Age PATRICIA Figueroa RNC Date 02/04/25 Reactive Yes Appropriate for Yes Gestational Age PATRICIA Newsome RN Date 02/04/25 OB NST charge Yes Complete NST Note Yes via Write Note The provider's electronic signature indicates the NST is reactive/appropriate for gestational age. *Note to provider: If an addendum is required, open the patient's chart and click on the note under the Nurse/Allied Health tab.
== END 2025-02-04 12:35 | disposition home or self-care (01) ==
LOC: OB OUT 11:14 → OB 11:15
PROVIDERS: Obstetrics & Gynecology; Visit Provider Family Medicine
DX: O26.892 Other specified pregnancy related conditions, second trimester (principal); S39.92XA Unspecified injury of lower back, initial encounter; S09.90XA Unspecified injury of head, initial encounter; W19.XXXA Unspecified fall, initial encounter; Z3A.25 25 weeks gestation of pregnancy
CPT/HCPCS: 59025; 84112; G0463